=== PATIENT | male | born 1965 | race African-American/Black ===

== ENCOUNTER 2023-04-16 23:09 | Inpatient (IN) | payer SELFPAY ==
[2023-04-16] MEDS ORDERED: ACETAMINOPHEN 1000 MG/100 ML BAG IVPB ONE (23:35)
[2023-04-16 23:49] VITALS: BMI 32.5
[2023-04-17] MEDS ORDERED: ACETAMINOPHEN INJECTION 100 ML IVPB ONE (01:00)
[2023-04-17] MEDS ORDERED: ONDANSETRON 4 MG/2 ML VIAL IVPUSH ONE (01:06)
[2023-04-17 01:24] LABS: BASO % 0.8 % (0-2.0); HEMATOCRIT 39.5 % (35.4-49); HEMOGLOBIN 12.9 GM/dL (11.7-16.9); LYMPH % 20.7 % (8-40); MCH 31.3 pg (25.7-33.7); MCHC 32.7 g/dl (32.0-35.9); MEAN CELL VOLUME 95.7 fl (80-96); MEAN PLT VOLUME 8.2 fl (7.5-11.1); MONO % 4.9 % (3.8-10.2); NEUT % 72.6 % (42.8-82.8); PLATELET COUNT 319 10^3/uL (134-434); RBC 4.13 M/mm3 (4.00-5.60); RDW 15.3 % (11.9-15.9); WHITE BLOOD COUNT 10.9 K/mm3 (4.0-10.0)
[2023-04-17 01:45] LABS: INR 0.97 (0.83-1.09); PROTHROMBIN TIME (PATIENT) 11.3 SEC (9.7-13.0)
[2023-04-17 01:45] LABS: POTASSIUM 3.9 mmol/L (3.5-5.1)
[2023-04-17 01:47] LABS: CALCIUM 9.3 mg/dL (8.5-10.1)
[2023-04-17 01:48] LABS: ACTIVATED PTT 27.1 SECONDS (25.2-36.5)
[2023-04-17 01:51] LABS: CREATININE 1.8 mg/dL (0.55-1.3)
[2023-04-17 01:52] LABS: BILIRUBIN,TOTAL 0.6 mg/dL (0.2-1); BLOOD UREA NITROGEN 22.6 mg/dL (7-18)
[2023-04-17 01:53] LABS: TOT PROT 7.9 g/dl (6.4-8.2)
[2023-04-17] MEDS ORDERED: SODIUM CHLORIDE 0.9% 500 ML INFUS.BAG IV ONE (01:56)
[2023-04-17] MEDS ORDERED: ONDANSETRON 4 MG/2 ML VIAL ONE (02:15)
[2023-04-17] MEDS ORDERED: oxyCODONE HCL 5 MG TABLET PO ONE (02:30)
[2023-04-17] MEDS ORDERED: oxyCODONE HCL 5 MG TABLET ONE (02:35)
[2023-04-17] MEDS ORDERED: oxyCODONE HCL 5 MG TABLET PO PRN ×2 (05:24→13:18)
[2023-04-17] MEDS ORDERED: ACETAMINOPHEN 325 MG TABLET (FP) PO PRN ×2 (05:24→12:49)
[2023-04-17] MEDS ORDERED: SODIUM CHLORIDE 1,000 ML IV SCH (05:30)
[2023-04-17] MEDS: HEPARIN NA (PORCINE) 5,000 UNITS/ML 1ML VIAL SQ SCH ×3 (06:37→21:16)
[2023-04-17] MEDS ORDERED: PROCAINAMIDE HCL PO SCH (10:30)
[2023-04-17] MEDS ORDERED: [UNRECOGNIZED DRUG - OTHER] PO SCH (10:30)
[2023-04-17] MEDS: ONDANSETRON 4 MG/2 ML VIAL IVPUSH PRN ×2 (10:33→13:11)
[2023-04-17 12:44] LABS: HEMATOCRIT 39.4 % (35.4-49); HEMOGLOBIN 12.4 GM/dL (11.7-16.9); MCH 30.7 pg (25.7-33.7); MCHC 31.4 g/dl (32.0-35.9); MEAN CELL VOLUME 97.7 fl (80-96); MEAN PLT VOLUME 8.8 fl (7.5-11.1); PLATELET COUNT 316 10^3/uL (134-434); RBC 4.03 M/mm3 (4.00-5.60); RDW 14.9 % (11.9-15.9); WHITE BLOOD COUNT 9.3 K/mm3 (4.0-10.0)
[2023-04-17] MEDS ORDERED: HYDROmorphone HCl 2 MG/ML VIAL IVPB ONE (12:46)
[2023-04-17 13:07] LABS: POTASSIUM 4.1 mmol/L (3.5-5.1)
[2023-04-17 13:09] LABS: ALBUMIN 3.9 g/dl (3.4-5.0); BLOOD UREA NITROGEN 23.8 mg/dL (7-18); MAGNESIUM 2.2 mg/dL (1.8-2.4)
[2023-04-17 13:12] LABS: CREATININE 1.9 mg/dL (0.55-1.3)
[2023-04-17 13:13] LABS: BILIRUBIN,TOTAL 0.7 mg/dL (0.2-1); TOT PROT 7.6 g/dl (6.4-8.2)
[2023-04-17] MEDS: oxyCODONE HCL 5 MG TABLET PO PRN (21:15)
[2023-04-17] MEDS ORDERED: TRIMETHOBENZAMIDE HCL 200MG/2ML INJ IM PRN (21:18)
[2023-04-18] MEDS: oxyCODONE HCL 5 MG TABLET PO PRN ×3 (03:33→18:21)
[2023-04-18] MEDS: HEPARIN NA (PORCINE) 5,000 UNITS/ML 1ML VIAL SQ SCH ×4 (05:59→22:26)
[2023-04-18 06:56] VITALS: RESP 20
[2023-04-18] MEDS: ONDANSETRON 4 MG TABLET PO PRN ×2 (11:12→18:21)
[2023-04-18] MEDS: ACETAMINOPHEN 1000 MG/100 ML BAG IVPB SCH ×2 (11:31→17:02)
[2023-04-19] MEDS: ACETAMINOPHEN 1000 MG/100 ML BAG IVPB SCH ×3 (02:10→18:28)
[2023-04-19] MEDS: oxyCODONE HCL 5 MG TABLET PO PRN (05:17)
[2023-04-19] MEDS: ONDANSETRON 4 MG TABLET PO PRN (05:18)
[2023-04-19] MEDS: HEPARIN NA (PORCINE) 5,000 UNITS/ML 1ML VIAL SQ SCH ×2 (05:25→15:44)
[2023-04-19 07:34] LABS: HEMATOCRIT 33.6 % (35.4-49); HEMOGLOBIN 10.6 GM/dL (11.7-16.9); MCH 31.1 pg (25.7-33.7); MCHC 31.6 g/dl (32.0-35.9); MEAN CELL VOLUME 98.4 fl (80-96); MEAN PLT VOLUME 8.5 fl (7.5-11.1); PLATELET COUNT 249 10^3/uL (134-434); RBC 3.42 M/mm3 (4.00-5.60); RDW 14.5 % (11.9-15.9); WHITE BLOOD COUNT 6.2 K/mm3 (4.0-10.0)
[2023-04-19 08:01] LABS: CALCIUM 8.6 mg/dL (8.5-10.1)
[2023-04-19 08:02] LABS: BLOOD UREA NITROGEN 24.4 mg/dL (7-18); MAGNESIUM 2.5 mg/dL (1.8-2.4)
[2023-04-19 08:05] LABS: CREATININE 1.6 mg/dL (0.55-1.3); PHOSPHOROUS 3.9 mg/dL (2.5-4.9)
[2023-04-19 15:58] VITALS: BP 130/75; PULSE 68; TEMP 97.8
== END 2023-04-19 20:02 | disposition left against medical advice (07) | DRG 201 ==
LOC: JER 23:09 → JERBED 04-17 03:16 → J4W 04-17 05:25 → OBSVTOIN 04-19 08:36
PROVIDERS: ADMIT Internal Medicine; ATTEND Internal Medicine
DX: I45.6 Pre-excitation syndrome (principal); R55 Syncope and collapse; N17.9 Acute kidney failure, unspecified; M76.61 Achilles tendinitis, right leg; D64.9 Anemia, unspecified; R20.0 Anesthesia of skin; R00.2 Palpitations; N18.9 Chronic kidney disease, unspecified
CPT/HCPCS: 36415; 70450-TC; 71045-TC-FY; 72170-TC-FY; 73502-TC-RT-FY; 73552-TC-RT-FY; 73560-TC-RT-FY; 73590-TC-RT-FY; 73610-TC-RT-FY; 73630-TC-RT-FY; 73700-TC-RT; 80048; 80053; 82550; 83735; 84100; 84484; 85025; 85027; 85610; 85730; 93005; 93010; 93306-TC; 99285-25; G0378; J1644